=== PATIENT | female | born 1985 | race Caucasian/White ===

== ENCOUNTER → 2020-03-01 12:28 | Outpatient (CLI) | payer OTHER, SELFPAY ==
[2020-03-01 16:48] LABS: Coronavirus 19 IgG Antibody Negative (Negative); Coronavirus 19 IgM Antibody Negative (Negative)
== END ==
PROVIDERS: PCP Emergency Medicine; Visit Provider Nurse Practitioner Family
DX: Z03.818 Encounter for observation for suspected exposure to other biological agents ruled out (principal)
CPT/HCPCS: 36415; 86328